=== PATIENT | female | born 1955 | race Two or more races ===

== ENCOUNTER 2019-05-15 17:04 | Emergency (ER) | payer SELFPAY ==
[~2019-05-15] VITALS: Ht 154.9 cm; Wt 64.0 kg
[2019-05-15 18:22] VITALS: BP 173/78
[2019-05-15] MEDS: IBUPROFEN 600MG TABLET PO ONE (18:22)
[2019-05-15] MEDS: BACITRACIN ZINC OINT UDPKT TOP ONE (18:22)
[2019-05-15] MEDS: BACITRACIN 15GM TUBE TOP NR (18:22)
== END 2019-05-15 19:10 | disposition home or self-care (01) ==
LOC: ER 17:04
DX: S61.012A Laceration without foreign body of left thumb without damage to nail, initial encounter (principal); E11.9 Type 2 diabetes mellitus without complications; W45.8XXA Other foreign body or object entering through skin, initial encounter; Y93.89 Activity, other specified; Y92.89 Other specified places as the place of occurrence of the external cause; Y99.8 Other external cause status
CPT/HCPCS: 73140; 99283